=== PATIENT | male | born 1995 | race Caucasian/White ===

== ENCOUNTER 2020-12-13 20:03 | Emergency (ER) | payer BC ==
[~2020-12-13] VITALS: Ht 177.8 cm; Wt 65.8 kg
[~2020-12-13 20:03] MED LIST: IBUP-1985 PO; NO HOME MEDS
[2020-12-13] MEDS ORDERED: LIDOcaine/epinephrine/tetracaine TOPICAL sol 3 ML syringe TOP ONE (22:50)
[2020-12-13] MEDS ORDERED: LIDOcaine 1% W/epiNEPHrine 1:200,000 10ml vial IJ ONE (22:50)
[2020-12-13] MEDS ORDERED: SULF1TAB49 PO (23:11)
[2020-12-14 00:02] VITALS: BP 114/73
== END 2020-12-14 00:04 | disposition home or self-care (01) ==
LOC: ER 20:03
DX: H66.42 Suppurative otitis media, unspecified, left ear (principal); F12.90 Cannabis use, unspecified, uncomplicated; Z72.89 Other problems related to lifestyle; Z79.2 Long term (current) use of antibiotics
CPT/HCPCS: 69000; 87070; 99284